=== PATIENT | female | born 1940 | race African-American/Black ===

== ENCOUNTER 2020-06-03 14:01 | Emergency (ER) | payer BC, MEDICARE ==
[~2020-06-03] VITALS: Ht 167.6 cm; Wt 72.7 kg
[~2020-06-03 14:01] MED LIST: CYCL10 PO; HERBAL VITAMINS; LISI-660 PO
[2020-06-03 15:17] VITALS: BP 111/71
== END 2020-06-03 15:33 | disposition home or self-care (01) ==
LOC: EMS 14:06
DX: H10.9 Unspecified conjunctivitis (principal); B37.0 Candidal stomatitis; I10 Essential (primary) hypertension; Z88.6 Allergy status to analgesic agent; Z88.1 Allergy status to other antibiotic agents; Z88.5 Allergy status to narcotic agent; Z88.8 Allergy status to other drugs, medicaments and biological substances; Z79.899 Other long term (current) drug therapy
CPT/HCPCS: 99283; Z7502

== ENCOUNTER 2022-07-19 11:35 | Emergency (ER) | payer MEDICARE, BC ==
[~2022-07-19] VITALS: Ht 157.5 cm; Wt 61.4 kg
[~2022-07-19 11:35] MED LIST changes: +CYCL-448 PO; -CYCL10 PO; -LISI-660 PO; +LISI-892 PO
[2022-07-19] MEDS ORDERED: LOSA-382 PO (11:49)
[2022-07-19] MEDS ORDERED: DIPH25TA20 PO (14:19)
[2022-07-19] MEDS ORDERED: HYDR30CR39 TP (14:19)
[2022-07-19] MEDS ORDERED: HYDR59LO7 TP (14:19)
[2022-07-19 15:00] VITALS: BP 151/76
== END 2022-07-19 15:24 | disposition home or self-care (01) ==
LOC: EMS 12:10
DX: L23.9 Allergic contact dermatitis, unspecified cause (principal); M19.90 Unspecified osteoarthritis, unspecified site; I10 Essential (primary) hypertension; M79.7 Fibromyalgia; Z98.890 Other specified postprocedural states; Z88.6 Allergy status to analgesic agent; Z91.040 Latex allergy status; Z88.5 Allergy status to narcotic agent
CPT/HCPCS: 99282; Z7502

== ENCOUNTER 2023-07-18 08:46 | Emergency (ER) | payer MEDICARE ==
[~2023-07-18] VITALS: Ht 157.5 cm; Wt 56.8 kg
[~2023-07-18 08:46] MED LIST changes: -CYCL-448 PO; +DIPH25TA20 PO; -HERBAL VITAMINS; +HYDR30CR39 TP; +HYDR59LO7 TP; -LISI-892 PO; +LOSA-382 PO
[2023-07-18 08:52] VITALS: TEMP 98.1
[2023-07-18] MEDS ORDERED: KETOROLAC TROMETHAMINE 30 MG/ML VIAL IM ONE (09:15)
[2023-07-18] MEDS ORDERED: LIDOCAINE 5% TRANSDERMAL PATCH TD ONE (09:15)
[2023-07-18] MEDS ORDERED: CYCLOBENZAPRINE HCL 10 MG TABLET PO ONE (09:15)
[2023-07-18] MEDS ORDERED: LIDO700A15 TP (10:03)
[2023-07-18] MEDS ORDERED: CYCL-448 PO (10:03)
[2023-07-18] MEDS ORDERED: IBUP-1492 PO (10:03)
[2023-07-18 10:05] VITALS: BP 139/84; PULSE 86; RESP 16
== END 2023-07-18 10:22 | disposition home or self-care (01) ==
LOC: EMS 09:04
DX: M62.838 Other muscle spasm (principal); M19.90 Unspecified osteoarthritis, unspecified site; I10 Essential (primary) hypertension; M79.7 Fibromyalgia; Z96.651 Presence of right artificial knee joint; Z98.890 Other specified postprocedural states; Z88.6 Allergy status to analgesic agent; Z91.040 Latex allergy status; Z88.8 Allergy status to other drugs, medicaments and biological substances
CPT/HCPCS: 99283; 96372; J1885

== ENCOUNTER 2025-05-12 08:10 | Emergency (ER) | payer MEDICARE ==
[~2025-05-12] VITALS: Ht 157.5 cm; Wt 50.9 kg
[~2025-05-12 08:10] MED LIST changes: -DIPH25TA20 PO; -HYDR30CR39 TP; -HYDR59LO7 TP; +LEVE500T8 PO; +LIDO-57 TP
[2025-05-12 08:13] VITALS: BP 144/70; PULSE 76; RESP 18; TEMP 98.4; O2SAT 99
[2025-05-12] MEDS: FLUORESCEIN SODIUM 1 MG STRIP OS ONE (08:33)
[2025-05-12] MEDS ORDERED: AMOX-457 PO (08:45)
[2025-05-12] MEDS: PROPARACAINE HCL 0.5% 15 ML OPHTHALMIC SOLUTION OS ONE (08:49)
[2025-05-12] MEDS: TETRACAINE HCL/PF 0.5% 4 ML OPHTHALMIC SOLUTION OS ONE (08:50)
[2025-05-12] MEDS: POLYMYXIN B/TRIMETHOPRIM 10 ML OPHTHALMIC SOLUTION OS ONE (08:50)
[2025-05-12] MEDS ORDERED: POLYOS OS (08:54)
[2025-05-12] MEDS: AMOX TR/POT CLAV 875 MG/125 MG TABLET PO ONE (09:02)
== END 2025-05-12 09:08 | disposition home or self-care (01) ==
LOC: EMS 08:10
DX: H10.89 Other conjunctivitis (principal); L03.213 Periorbital cellulitis; I10 Essential (primary) hypertension; Z96.659 Presence of unspecified artificial knee joint; Z88.5 Allergy status to narcotic agent; Z88.8 Allergy status to other drugs, medicaments and biological substances; Z98.890 Other specified postprocedural states
CPT/HCPCS: 99283